=== PATIENT | female | born 1995 | race Two or more races ===

== ENCOUNTER 2024-07-13 13:01 | Emergency (ER) | payer OTHER ==
[2024-07-13 13:36] LABS: Basophils # (auto) 0 10 ^3/uL (0-0.2); Basophils % (auto) 0.6 % (0.0-2.0); Eosinophils # (auto) 0.2 10 ^3/uL (0-0.8); Eosinophils % (auto) 3.8 % (0.0-7.0); Hematocrit 35.5 % (36.0-46.0); Hemoglobin 11.7 g/dL (12.2-16.2); Lymphocytes # (auto) 1.3 10 ^3/uL (0.4-5.4); Lymphocytes % (auto) 22.1 % (10.0-50.0); Mean Corpuscular Volume 75.9 fL (80.0-100.0); Monocytes # (auto) 0.4 10 ^3/uL (0-1.3); Monocytes % (auto) 6.3 % (0.0-12.0); Neutrophils # (auto) 3.9 10 ^3/uL (1.6-8.6); Neutrophils % (auto) 67.2 % (37.0-80.0); Nucleated Red Blood Cells % 0.1 %; Platelet Count (auto) 237 10^3/uL (140-450); Red Blood Cells 4.68 10^6/uL (4.0-5.20); Red Cell Distribution Width 16.4 % (11.8-14.3); White Blood Cell 5.8 10^3/uL (4.4-10.8)
[2024-07-13 13:45] LABS: Anion Gap 9 (5-15); Carbon Dioxide 23 mmol/L (20-31); Potassium 4.3 mmol/L (3.5-5.1); Sodium 140 mmol/L (136-145)
[2024-07-13 13:48] LABS: Chloride 108 mmol/L (98-107)
[2024-07-13 13:52] LABS: BUN/Creatinine Ratio 12.3 (10.0-20.0); Blood Urea Nitrogen 9 mg/dL (9-23); Glucose 114 mg/dL (74-106)
--- NOTE | 2024-07-13 13:55 | ED.PDOC ---
HPI (NEURO) HPI Comments A 29 YEAR OLD FEMALE PRESENTS TO THE ED WITH CHIEF COMPLAINT OF HEADACHE. PATIENT REPORTS THAT WHEN SHE WOKE UP AROUND 9AM, SHE STARTED TO EXPERIENCE A SEVERE GENERALIZED HEADACHE WITH ASSOCIATED CHEST TIGHTNESS, PHOTOPHOBIA, AND AN EPISODE OF NEAR SYNCOPE. PATIENT RELAYS THAT THIS IS THE WORST HEADACHE OF HER LIFE. PATIENT DENIES ANY VOMITING, DIZZINESS, SOB, BLURRED VISION, NUMBNESS/WEAKNESS/TINGLING OF EXTREMITIES. PT IS ALERT, ORIENTATION X4 WITH NORMAL GAIT. Chief Complaint: Headache Time Seen by MD: 13:51 Reviewed Notes: Nurses Notes, Medications, Allergies Information Source: Patient Mode of Arrival: Ambulatory Severity: Moderate Dizziness/Weakness Severity: Unable to do activities Headache Severity: Moderate, Worst Headache of life Timing: Hours Duration: Since onset Prehospital treatment: None Headache Quality: Throbbing, Aching Headache Location: Generalized Onset: At rest Circumstances: Spontaneous Symptoms: Syncope, Other (PHOTOPHOBIA) After: Headache History of: None Modifying factors: Nothing Associated Signs and Symptoms: Headache Past Medical History PAST MEDICAL HISTORY: Anxiety Past Medical History (Other): PREDIABETES Surgical History: Denies all surgeries [employer]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 SEASONAL History: No Pertinent 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 SE[employer]ONAL History Family History Family History: Reviewed,noncontributory to illness Social History Smoker: Non-Smoker Alcohol: Denies ETOH Use Drugs: Denies Drug Use Lives In: Home Constitutional: denies: chills, diaphoresis, fatigue, fever, malaise, sweats, weakness, others EENTM: reports: photophobia; denies: blurred vision, double vision, ear bleeding, ear discharge, ear drainage, ear pain, ear ringing, eye pain, eye redness, hearing loss, mouth pain, mouth swelling, nasal discharge, nose bleeding, nose congestion, nose pain, tearing, throat pain, throat swelling, voice changes, others Respiratory: denies: cough, hemoptysis, orthopnea, SOB at rest, shortness of breath, SOB with excertion, stridor, wheezing, others Cardiovascular: reports: chest pain, syncope (NEAR SYNCOPE); denies: dizzy spells, diaphoresis, Dyspnea on exertion, edema, irregular heart beat, left arm pain, lightheadedness, palpitations, PND, others Gastrointestinal: reports: nausea; denies: abdomen distended, abdominal pain, blood streaked bowels, constipated, diarrhea, dysphagia, difficulty swallowing, hematemesis, melena, poor appetite, poor fluid intake, rectal bleeding, rectal pain, vomiting, others Genitourinary: denies: abnormal vagina bleeding, burning, dyspareunia, dysuria, flank pain, frequency, hematuria, incontinence, pain, , vagina discharge, urgency, others Neurological: reports: headache; denies: dizziness, fainting, left sided numbness, left sided weakness, numbness, paresthesia, pre-existing deficit, right sided numbness, right sided weakness, seizure, speech problems, tingling, tremors, weakness, others Musculoskeletal: denies: back pain, gout, joint pain, joint swelling, muscle pain, muscle stiffness, neck pain, others Integumetry: denies: bruises, change in color, change in hair/nails, dryness, laceration, lesions, lumps, rash, wounds, others Allergic/Immunocompromised: denies: Difficulty Healing, Frequent Infections, Hives, Itching, others Hematologic/Lymphatic: denies: anemia, blood clots, easy bleeding, easy bruising, swollen glands, others Endocrine: denies: excessive hunger, excessive sweating, excessive thirst, excessive urination, flushing, intolerance to cold, intolerance to heat, unexplained weight gain, unexplained weight loss, others Psychiatric: reports: anxiety; denies: bipolar disorder, depression, hopeless, panic disorder, schizophrenia, sleepless, suicidal, others All Other Systems: Reviewed and Negative Physical Exam General Appearance: No Apparent Distress, Normal, Other (ANXIOUS ) HEENT: Normal ENT Inspection, PERRL/EOMI, TMs Normal Neck: Full Range of Motion, Non-Tender, Normal, Normal Inspection Respiratory: Chest Non-Tender, Lungs Clear, No Accessory Muscle Use, No Respiratory Distress, Normal Breath Sounds Cardiovascular: No Edema, No JVD, No Murmur, No Gallop, Normal Peripheral Pulses, Regular Rate/Rhythm Breast Exam: Deferred Gastrointestinal: No Organomegaly, Non Tender, No Pulsatile Mass, Normal Bowel Sounds, Soft Genitalia: Deferred Pelvic: Deferred Rectal: Deferred Extremities: No calf tenderness, Normal capillary refill, Normal inspection, Normal range of motion, Non-tender, No pedal edema Musculoskeletal : Apperance: Normal Neurologic: Alert, 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 Was a procedure done?: No Differential Diagnosis (SZ) General Weakness: Anemia, Electrolyte imbalance Headache: Migraine, Intracerebral Hemorrhage, Mass Lesion, Sinusitis, Other (ANXIETY REACTION ) X-Ray, Labs, Meds, VS Vital Signs Date Time Temp Pulse Resp B/P (MAP) Pulse Ox O2 Delivery O2 Flow Rate FiO2 07/13/24 14:48 66 07/13/24 14:46 66 07/13/24 13:33 70 18 100 Room Air 07/13/24 13:33 98.2 70 18 115/66 (82) 100 98.2 07/13/24 13:01 98.2 70 18 115/66 (82) 100 98.2 Lab Test 07/13/24 13:25 07/13/24 00:00 Range/Units White Blood Count 5.8 4.4-10.8 10^3/uL Red Blood Count 4.68 4.0-5.20 10^6/uL Hemoglobin 11.7 L 12.2-16.2 g/dL Hematocrit 35.5 L 36.0-46.0 % Mean Corpuscular Volume 75.9 L 80.0-100.0 fL Mean Corpuscular Hemoglobin 25.0 L 28.0-32.0 pg Mean Corpuscular Hemoglobin Concent 33.0 32.0-36.0 g/dL Red Cell Distribution Width 16.4 H 11.8-14.3 % Platelet Count 237 140-450 10^3/uL Mean Platelet Volume 8.3 6.9-10.8 fL Neutrophils (%) (Auto) 67.2 37.0-80.0 % Lymphocytes (%) (Auto) 22.1 10.0-50.0 % Monocytes (%) (Auto) 6.3 0.0-12.0 % Eosinophils (%) (Auto) 3.8 0.0-7.0 % Basophils (%) (Auto) 0.6 0.0-2.0 % Neutrophils # (Auto) 3.9 1.6-8.6 10 ^3/uL Lymphocytes # (Auto) 1.3 0.4-5.4 10 ^3/uL Monocytes # (Auto) 0.4 0-1.3 10 ^3/uL Eosinophils # (Auto) 0.2 0-0.8 10 ^3/uL Basophils # (Auto) 0 0-0.2 10 ^3/uL Nucleated Red Blood Cells 0.1 % Sodium Level 140 136-145 mmol/L Potassium Level 4.3 3.5-5.1 mmol/L Chloride Level 108 H 98-107 mmol/L Carbon Dioxide Level 23 20-31 mmol/L Anion Gap 9 5-15 Blood Urea Nitrogen 9 9-23 mg/dL Creatinine 0.73 0.550-1.02 mg/dL Glomerular Filtration Rate Calc 114 >90 mL/min BUN/Creatinine Ratio 12.3 10.0-20.0 Serum Glucose 114 H 74-106 mg/dL Calcium Level 9.0 8.7-10.4 mg/dL Troponin I High Sensitivity < 3 L </=34 ng/L Urine Color Light-yellow Yellow Urine Clarity Clear Clear Urine pH 6.0 5.0-9.0 Urine Specific [place] 1.032 1.001-1.035 Urine Protein Negative Negative Urine Ketones 1+ H Negative Urine Blood Negative Negative /uL Urine Nitrite Negative Negative Urine Bilirubin Negative Negative Urine Urobilinogen Normal Negative mg/dL Urine Leukocyte Esterase 1+ Negative /uL Urine RBC 2 0 - 4 /hpf Urine Microscopic WBC 1 0-5 /HPF Urine Squamous Epithelial Cells Few <5 /hpf Urine Bacteria None seen None Seen /hpf Urine Mucus Few None Seen Urine Glucose Normal Normal mg/dL Urine Test Negative Negative Urine Opiates Screen Neg NEGATIVE Urine Fentanyl Screen Neg NEGATIVE Urine Barbiturates Screen Neg NEGATIVE Urine Phencyclidine Screen Neg NEGATIVE Urine Amphetamines Screen Neg NEGATIVE Urine Benzodiazepines Screen Neg NEGATIVE Urine Cocaine Screen Neg NEGATIVE Urine Cannabinoids Screen Neg NEGATIVE Current Medications Medications (Trade) Dose Ordered Sig/Swapna Route Start Time Stop Time Status Last Admin Sumatriptan Succinate (Imitrex Inj) 6 mg ONCE ONCE SC 07/13/24 14:30 07/13/24 14:31 DC 07/13/24 14:31 Ondansetron HCl (Zofran Po) 4 mg ONCE ONCE PO 07/13/24 14:30 07/13/24 14:31 DC 07/13/24 14:31 CT HEAD: FINDINGS: There is sulcal and ventricular prominence. The brainshows normal morphology and nair-white matter differentiation, without intracranial hemorrhage, extra-axial fluid collection, mass effect or acute large vessel infarct. The ventricles are normal in size. The basal cisterns are patent. The skull and visible facial bones are intact. The paranasal sinuses, mastoid air cells and middle ear cavities are well-aerated. The soft tissues of the scalp are unremarkable. IMPRESSION: No acute intracranial abnormality. X-Ray, Labs, Meds, VS Comment EXTERNAL MEDICAL RECORDS REVIEWED: [NONE] INDEPENDENT HISTORIANS: [NONE] SOCIAL DETERMINANTS OF HEALTH: [NONE] LABS ORDERED: CBC, CMP, UA, PREG URINE, TROP, UDS REVIEWED AND INTERPRETED RESULTS: CT HEAD IMAGING ORDERED: CT HEAD TREATMENTS ORDERED: ZOFRAN 4MG PO, IMITREX 6MG SC PROCEDURES PERFORMED: NONE CRITICAL CARE TIME: NONE I HAVE DISCUSSED THE PATIENT WITH THE ATTENDING PHYSICIAN DR. AGUIAR AND HE AGREES WITH THE PATIENT'S PLAN OF CARE AND DISPOSITION. BASED ON HISTORY OF PRESENT ILLNESS, AND PHYSICAL EXAM, PATIENT WILL BE DISCHARGED HOME. DISCUSSED PLAN FOR DISCHARGE HOME WITH RX IMITREX. MEDICATION WARNINGS GIVEN. SHARED DECISION MAKING: DISCUSSED WITH PATIENT THAT THEIR WORKUP WAS NORMAL. PATIENT INSTRUCTED TO FOLLOW UP WITH PRIMARY CARE PROVIDER IN 1-2 DAYS FOR RE- EVALUATION OF SYMPTOMS. PATIENT VERBALIZES UNDERSTANDING TO RETURN TO ED FOR NEW OR WORSENING SYMPTOMS OR IF FOLLOW UP WITH PCP CANNOT BE OBTAINED. PATIENT FEELS COMFORTABLE GOING HOME AT THIS TIME. ALL QUESTIONS ADDRESSED AT TIME OF DISCHARGE. Time of 1ST Reevaluation: 15:01 Reevaluation 1ST: Improved Patient Education/Counseling: Diagnosis, Treatment, Need For Follow Up Family Education/Counseling: Diagnosis, Treatment, No Family Present Medical Screening: No EMC Exist At This Time Departure 1 Departure Time of Disposition: 15:01 Impression: Primary Impression: Migraine headache Qualified Codes: G43.909 - Migraine, unspecified, not intractable, without status migrainosus Additional Impression: Vasovagal episode Disposition: 01 HOME / SELF CARE / HOMELESS Condition: Stable Additional Instructions: FOLLOW-UP WITH PCP IN 1 TO 2 DAYS. TAKE MEDICATIONS PRESCRIBED. RETURN TO ED FOR ANY NEW OR WORSENING SYMPTOMS. e-Prescriptions Sumatriptan Succinate (Imitrex) 50 Mg Tab 1 TAB PO BID, #20 TAB Prov: FLORES PÉREZ 07/13/24 Discharged With: Self Critical Care Note Critical Care Time?: No Stability Stability form required: No Heart Score Heart Score: Heart Score Response (Comments) Value History N/A 0 EKG N/A 0 Age N/A 0 Risk Factors N/A 0 Troponin N/A 0 Total 0 I personally scribed for FLORES PÉREZ ([email or web address]) on 07/13/24 at 13:55. Electronically submitted by Lito George ([email or web address]). I personally scribed for FLORES PÉREZ ([email or web address]) on 07/13/24 at 13:55. Electronically submitted by Lito George ([email or web address]). I personally scribed for FLORES PÉREZ ([email or web address]) on 07/13/24 at 14:20. Electronically submitted by Lito George ([email or web address]). I personally scribed for FLORES PÉREZ ([email or web address]) on 07/13/24 at 14:48. Electronically submitted by Lito George ([email or web address]). I personally scribed for FLORES PÉREZ ([email or web address]) on 07/13/24 at 14:54. Electronically submitted by Lito George ([email or web address]). FLORES PÉREZ July 13, 2024 13:55
--- NOTE | 2024-07-13 14:11 | DVH ---
CT HEAD WITHOUT CONTRAST INDICATION: HEADACHE EXAM DATE: 07/13/2024 01:17 PM COMPARISON: None RADIATION DOSE: CTDIvol: 53 mGy, DLP: 862 mGy*cm PROCEDURE: CT scans of the head were obtained from the vertex to the skull base. Sagittal and coronal reconstructions were provided. All CT scans at this medical facility are performed using dose modulation techniques as appropriate t o a performed exam including the following: Automated exposure control was utilized; adjustment of th e MA and/or KV according to patient size; and use of iterative reconstruction technique. FINDINGS: There is sulcal and ventricular prominence. The brainshows normal morphology and nair-whi te matter differentiation, without intracranial hemorrhage, extra-axial fluid collection, mass effect or acute large vessel infarct. The ventricles are normal in size. The basal cisterns are patent. The skull and visible facial bones are intact. The paranasal sinuses, mastoid air cells and middle ear c avities are well-aerated. The soft tissues of the scalp are unremarkable. IMPRESSION: No acute intracranial abnormality.
[2024-07-13 14:22] LABS: Urine Bacteria None Seen /hpf (None Seen)
[2024-07-13] MEDS: ONDANSETRON ODT 4 MG TAB PO ONE (14:31)
[2024-07-13] MEDS: SUMAtriptan SUCCINATE 6 MG/0.5 ML VL SC ONE (14:31)
[2024-07-13 14:33] LABS: Urine Blood Negative /uL (Negative); Urine Clarity Clear (Clear); Urine Color Light-Yellow (Yellow); Urine Mucus FEW (None Seen); Urine Protein, UAD Negative (Negative); Urine Specific Gravity 1.032 (1.001-1.035); Urine Squamous Epithelial Cell FEW /hpf (<5); Urine Urobilinogen Normal (Negative); Urine WBC 1 /HPF (0-5)
[2024-07-13 14:39] LABS: Amphetamine Screen, Urine Neg (NEGATIVE)
[2024-07-13 14:40] LABS: Barbiturate Scree,Urine Neg (NEGATIVE); Benzodiazephine Screen, Urine Neg (NEGATIVE); Cannabinoid Screen, Urine Neg (NEGATIVE); Cocaine Screen, Urine Neg (NEGATIVE); Opiate Scree,Urine Neg (NEGATIVE); Phencyclidine Screen, Urine Neg (NEGATIVE)
[2024-07-13] MEDS ORDERED: SUMA50TA2 PO (15:00)
[2024-07-13 15:04] VITALS: BP 110/63; PULSE 63; RESP 18; TEMP 98; O2SAT 100
--- NOTE | 2024-07-17 13:48 | ECG ---
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
== END 2024-07-13 15:16 | disposition home or self-care (01) ==
LOC: ER 13:01
DX: G43.909 Migraine, unspecified, not intractable, without status migrainosus (principal); R07.89 Other chest pain; R55 Syncope and collapse; F41.9 Anxiety disorder, unspecified; Z79.899 Other long term (current) drug therapy
CPT/HCPCS: 36415; 70450; 80048; 80307; 81001; 81025; 84484; 85025; 96372; 99285; J3030; Q0162; 93005